=== PATIENT | female | born 1985 ===

== ENCOUNTER → 2025-11-08 00:04 | Outpatient (CLI) | payer OTHER, SELFPAY ==
--- NOTE | 2025-11-08 06:30 | DI.MRI_ITS ---
Exam(s) MR LOWER JOINT LT WO EXAM: MR LOWER JOINT LT WO CLINICAL HISTORY: PAIN,arthritis lt knee,m17.12. TECHNIQUE: Multiplanar multisequence MRI was performed. COMPARISON: CR XR KNEE 3V LT from 08/11/2025 FINDINGS: BONES: There is no fracture or contusion pattern. There is minimal spurring at the medial femoral condyle and medial tibial plateau. JOINTS: Moderate-sized joint effusion is present. There is synovial thickening suggesting synovitis. Articular cartilage: Patellofemoral joint: Tiny focal defect in the medial patellar facet cartilage. Not full-thickness. Medial femoral tibial joint: Articular cartilage is unremarkable. Lateral femoral tibial joint: Articular cartilage is unremarkable. LIGAMENTS/TENDONS: Anterior Cruciate: Unremarkable. Posterior Cruciate: Unremarkable. Medial Collateral:Unremarkable. Lateral Collateral ligament complex: Unremarkable. Extensor mechanism: Unremarkable. Medial retinaculum: Unremarkable. Lateral retinaculum: Unremarkable. Popliteus: Unremarkable. MENISCI: The medial meniscus is unremarkable. The lateral meniscus is unremarkable. MUSCLES: Unremarkable. SOFT TISSUES: Small multiloculated Burks's cyst measuring 4.8 cm in length by 1.1 cm transverse by 1.6 cm AP.. IMPRESSION: Moderate-sized joint effusion. Fluid Frarah thickening could indicate synovitis. Small Burks's cyst. Minimal focal defect of the medial patellar facet cartilage. No ligament or meniscal tear. DATA REPOSITORY:
== END ==
LOC: DI 00:04
PROVIDERS: PCP Family Medicine; Visit Provider Student in an Organized Health Care Education/Training Program
DX: M17.12 Unilateral primary osteoarthritis, left knee (principal); M25.462 Effusion, left knee
CPT/HCPCS: 73721